=== PATIENT | female | born 2000 | race Hispanic/Latino ===

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

== ENCOUNTER 2019-01-15 09:54 | Emergency (ER) | payer OTHER ==
[~2019-01-15] VITALS: Ht 152.4 cm; Wt 57.3 kg
[2019-01-15 09:54] VITALS: BP 124/56
[~2019-01-15 09:54] MED LIST changes: +FERR325T3 PO
[2019-01-15] MEDS ORDERED: MUCINEX (10:00)
== END 2019-01-15 10:27 | disposition home or self-care (01) ==
LOC: M ED 09:54
DX: J06.9 Acute upper respiratory infection, unspecified (principal); R50.9 Fever, unspecified; R05 Cough

== ENCOUNTER 2019-11-05 06:13 | Emergency (ER) | payer OTHER ==
[~2019-11-05] VITALS: Ht 152.4 cm; Wt 57.7 kg
[~2019-11-05 06:13] MED LIST changes: +MUCINEX; -OMEP40CA2 PO; +OMEP40CA97 PO
[2019-11-05] MEDS ORDERED: NS 1,000 ML IV ONE (06:45)
[2019-11-05 07:08] LABS: BASO # 0.1 10^3/uL (0.0-0.2); BASO % 1.1 % (0.0-1.0); EOS # 0.4 10^3/uL (0.0-0.5); EOS % 5.5 % (0.0-3.0); HEMATOCRIT 39.6 % (36.0-47.0); HEMOGLOBIN 12.6 g/dl (12.0-15.5); LYMPH # 2.2 10^3/uL (1.5-5.0); LYMPH % 33.1 % (24.0-44.0); MEAN CORPUSCULAR HEMOGLOBIN 27.6 pg (27.0-33.0); MEAN CORPUSCULAR HGB CONC 31.8 g/dl (32.0-36.5); MEAN CORPUSCULAR VOLUME 86.8 fl (80.0-96.0); MONO # 0.7 10^3/uL (0.0-0.8); MONO % 10.3 % (0.0-5.0); NEUTROPHILS # 3.3 10^3/uL (1.5-8.5); NEUTROPHILS % 49.7 % (36.0-66.0); PLATELET COUNT, AUTOMATED 182 10^3/uL (150-450); RED BLOOD COUNT 4.56 10^6/uL (4.00-5.40); WHITE BLOOD COUNT 6.6 10^3/uL (4.0-10.0)
[2019-11-05] MEDS ORDERED: KETOROLAC 30 MG/ML 1ML VIAL IV ONE (07:15)
[2019-11-05 07:33] LABS: ALBUMIN 3.9 GM/DL (3.2-5.2); ALT/SGPT 21 U/L (12-78); BILIRUBIN,DIRECT 0.2 MG/DL (0.0-0.2); BILIRUBIN,TOTAL 0.6 MG/DL (0.2-1.0); BLOOD UREA NITROGEN 13 MG/DL (7-18); CALCIUM LEVEL 9.3 MG/DL (8.5-10.1); CARBON DIOXIDE LEVEL 28 MEQ/L (21-32); CHLORIDE LEVEL 108 MEQ/L (98-107); CK-MB VALUE MASS 1.1 NG/ML (<3.6); CPK CREATINE PHOSPHOKINASE 227 U/L (26-192); CREATININE FOR GFR 0.98 MG/DL (0.55-1.30); GLUCOSE, FASTING 93 MG/DL (70-100); LIPASE 98 U/L (73-393); MB/CK RELATIVE INDEX 0.48 (< OR =4); POTASSIUM SERUM 4.2 MEQ/L (3.5-5.1); SODIUM LEVEL 141 MEQ/L (136-145); TROPONIN I < 0.02 NG/ML (< 0.10)
--- NOTE | 2019-11-05 07:57 | REPVR ---
PROCEDURE INFORMATION: Exam: US Abdomen, Limited; Right Upper Quadrant Exam date and time: 11/05/2019 7:36 AM Age: 19 years old Clinical indication: Abdominal pain; Patient HX: Ruq/epigastric pain; Additional info: Ruq/epigastric pain rad to back, R/O gallstone vs cholecysti TECHNIQUE: Imaging protocol: US abdomen. Real time ultrasound with image documentation. Limited exam focused on the right upper quadrant. COMPARISON: CT ABD PELVIS WITH CONTRAST 09/22/2018 12:26 PM FINDINGS: Liver: The liver is homogeneous in echotexture. No demonstrated mass or intrahepatic biliary ductal dilatation. Gallbladder: The gallbladder is without demonstrated stones, sludge or wall thickening, and there is no pericholecystic fluid. Sonographic Ferrari sign was not reported as positive. Common bile duct: The common bile duct is normal in size for a patient of this age at 3.8 mm. Pancreas: Visualized portions of the pancreas, not fully including the tail, are without demonstrated abnormality. Right kidney: The right kidney measures 10.1 x 4.3 x 4.8 cm. Normal appearing echotexture. There is no hydronephrosis or demonstrated renal stone, cyst or mass. Inferior vena cava: The IVC is present. IMPRESSION: No cholelithiasis or sonographic evidence of cholecystitis. Electronically signed by: Guevara Tipton On 11/05/2019 07:57:12 AM
--- NOTE | 2019-11-05 08:08 | ECGEPIP ---
[facility] - ED Test Date: 2019-11-05 Pat Name: AUGUSTO GIRON Department: Room: - Gender: Female Dog Trainer: NANCY : 2000 Requested By: APRIL Portillo PA-C Order Number: [id number] Reading MD: Roxane Reddy Measurements Intervals [place] Rate: 53 P: -14 LA: 141 QRS: 61 QRSD: 87 T: 39 QT: 418 QTc: 394 Interpretive Statements SINUS BRADYCARDIA PROBABLE EARLY REPOLARIZATION No prior Electronically Signed on 11-05-2019 8:07:54 EDT by Roxane Reddy
--- NOTE | 2019-11-05 08:28 | REP ---
Clinical: Lower chest and abdominal pain. Technique: PA and lateral. Findings: Mediastinum and cardiac silhouette normal. Lung torres clear. No focal consolidation, effusion, or pneumothorax. Skeletal structures intact. Limited upper abdomen appears unremarkable. Impression: Normal chest x-ray. Electronically Signed by Mihai Aranda MD 11/05/2019 08:19 A
[2019-11-05] MEDS ORDERED: ISOVUE-370 76% 100ML VIAL As Ordered ONE (08:44)
[2019-11-05] MEDS ORDERED: PANTOPRAZOLE 40MG VIAL (C9113 PER 1) IV ONE (08:45)
[2019-11-05] MEDS ORDERED: GI COCKTAIL 50ML BTL(HYOSCYAMINE/MAALOX/LIDOCAINE VISCOUS)(1:3:1) PO ONE (08:45)
--- NOTE | 2019-11-05 09:12 | REP ---
Clinical: Right upper quadrant/epigastric pain. Technique: Axial contrast enhanced images from the lung bases to the pubic symphysis using 100 ml Isovue 370 intravenous contrast material with coronal and sagittal re-formations. Comparison: 09/22/2018. Findings: Lung bases are clear. Visualized heart and pericardium normal. Liver, spleen, pancreas, gallbladder, bilateral adrenal glands and kidneys are normal. The enteric system is without obstruction or acute inflammatory process although fecal stasis and constipation cannot be excluded. Pelvis demonstrates normal bladder and age-appropriate uterus/adnexa. No ascites. No free air. No adenopathy. Abdominal aorta and vasculature normal. Musculoskeletal structures are intact. Impression: Normal contrast enhanced CT of the abdomen and pelvis. No acute abdominopelvic pathology appreciated. Electronically Signed by Mihai Aranda MD 11/05/2019 09:04 A
[2019-11-05] MEDS ORDERED: PROT1TAB2 PO (10:05)
[2019-11-05 10:48] VITALS: BP 108/55
[2019-11-05 10:58] LABS: CK-MB VALUE MASS 1.1 NG/ML (<3.6); CPK CREATINE PHOSPHOKINASE 176 U/L (26-192); MB/CK RELATIVE INDEX 0.62 (< OR =4); TROPONIN I < 0.02 NG/ML (< 0.10)
== END 2019-11-05 11:07 | disposition home or self-care (01) ==
LOC: M ED 06:13
DX: K29.70 Gastritis, unspecified, without bleeding (principal); R00.1 Bradycardia, unspecified; Z87.42 Personal history of other diseases of the female genital tract; F17.200 Nicotine dependence, unspecified, uncomplicated
CPT/HCPCS: 71046; 74177; 76705; 80047; 80048; 80076; 81001; 82550; 82553; 83690; 84484; 84702; 85025; 93005; 96374; 96375; 99284; C9113; J1885; Q9967

== ENCOUNTER 2020-02-15 11:26 | Emergency (ER) | payer OTHER ==
[~2020-02-15] VITALS: Ht 152.4 cm; Wt 67.2 kg
[~2020-02-15 11:26] MED LIST changes: +PROT1TAB2 PO
[2020-02-15] MEDS ORDERED: META28.32 PO (11:32)
[2020-02-15] MEDS ORDERED: NS 1,000 ML IV ONE (12:00)
[2020-02-15] MEDS ORDERED: KETOROLAC 30 MG/ML 1ML VIAL IV ONE (12:00)
[2020-02-15 12:28] LABS: BASO % 0.6 % (0.0-1.0); EOS # 0.1 10^3/uL (0.0-0.5); HEMATOCRIT 37.5 % (36.0-47.0); HEMOGLOBIN 11.6 g/dl (12.0-15.5); LYMPH % 29.2 % (24.0-44.0); MEAN CORPUSCULAR HEMOGLOBIN 26.2 pg (27.0-33.0); MEAN CORPUSCULAR HGB CONC 30.9 g/dl (32.0-36.5); MEAN CORPUSCULAR VOLUME 84.7 fl (80.0-96.0); MONO # 0.4 10^3/uL (0.0-0.8); MONO % 5.9 % (0.0-5.0); NEUTROPHILS # 4.3 10^3/uL (1.5-8.5); PLATELET COUNT, AUTOMATED 206 10^3/uL (150-450); RED BLOOD COUNT 4.43 10^6/uL (4.00-5.40)
[2020-02-15] MEDS ORDERED: ISOVUE-370 76% 100ML VIAL As Ordered ONE (12:32)
[2020-02-15 12:44] LABS: INR 1.07; PROTHROMBIN TIME 14.1 SECONDS (12.5-14.3)
[2020-02-15 12:45] LABS: PARTIAL THROMBOPLASTIN TIME 28.9 SECONDS (24.2-38.5)
[2020-02-15 12:56] LABS: ALBUMIN 4.1 GM/DL (3.2-5.2); BILIRUBIN,DIRECT 0.2 MG/DL (0.0-0.2); BILIRUBIN,TOTAL 0.7 MG/DL (0.2-1.0); TOTAL PROTEIN 7.3 GM/DL (6.4-8.2)
--- NOTE | 2020-02-15 12:57 | REP ---
INDICATION: Periumbilical pain/rectal bleeding COMPARISON: 11/05/2019. TECHNIQUE: CT Scan of the abdomen and pelvis was performed with intravenous administration of 100 cc of Isovue 370, without oral contrast. FINDINGS: Lung bases: Unremarkable. Liver: Normal Gallbladder: Unremarkable. Spleen: Normal. Adrenals: Normal. Pancreas: Normal. Kidneys: Normal. Small and large bowel: Unremarkable. Free fluid: A tiny amount of free fluid in pelvis is likely physiologic in nature. Abdominal aorta: No aneurysm or dissection. Adenopathy: None. Appendix: Not inflamed. Osseous structures: Unremarkable. Pelvis: No mass. IMPRESSION: Negative CT abdomen and pelvis. A tiny amount of free fluid in the pelvis is likely physiologic in nature. <Electronically signed by Sudheer Burris > 02/15/20 [id number]
[2020-02-15 14:03] VITALS: BP 108/53
== END 2020-02-15 14:19 | disposition home or self-care (01) ==
LOC: M ED 11:26
DX: K62.5 Hemorrhage of anus and rectum (principal); R10.33 Periumbilical pain; K58.9 Irritable bowel syndrome, unspecified; K21.9 Gastro-esophageal reflux disease without esophagitis; D64.9 Anemia, unspecified; F17.210 Nicotine dependence, cigarettes, uncomplicated; R63.4 Abnormal weight loss
CPT/HCPCS: 74177; 80047; 80076; 83690; 85025; 85610; 85730; 96361; 96374; 99284; J1885; Q9967

== ENCOUNTER 2020-03-09 06:36 | Day surgery (SDC) | payer OTHER ==
[~2020-03-09] VITALS: Ht 152.4 cm; Wt 62.1 kg
[~2020-03-09 06:36] MED LIST changes: +META28.32 PO
[2020-03-09] MEDS ORDERED: propofoL 500 MG/50 ML VIAL As Ordered ONE (06:58)
[2020-03-09] MEDS ORDERED: fentaNYL 100 MCG/2 ML INJECTION (J3010) As Ordered ONE (06:59)
[2020-03-09] MEDS ORDERED: NS 1,000 ML IV ONE (07:00)
[2020-03-09] MEDS ORDERED: LIDOCAINE 2% 100MG/5ML SDV (FOR ANES.) As Ordered ONE (07:01)
[2020-03-09] MEDS ORDERED: ONDANSETRON 4MG/2ML VIAL As Ordered ONE (07:11)
[2020-03-09] MEDS ORDERED: ePHEDrine SULFATE 25 MG/5 ML(5MG/ML) SYRINGE As Ordered ONE (07:48)
--- NOTE | 2020-03-09 07:48 | ROOR ---
Patient Name: Pietro Alberto Procedure Date: 03/09/2020 7:35 AM Date of : 2000 Age: 19 Room: [facility] Gender: Female Note Status: Finalized Procedure: Upper Endoscopy + Biopsies Indications: Epigastric abdominal pain, Nausea with vomiting Providers: Cain Dawkins MD Referring MD: DOROTA ACOSTA MD Requesting Provider: Medicines: Monitored Anesthesia Care Complications: No immediate complications. Procedure: Pre-Anesthesia Assessment: - The heart rate, respiratory rate, oxygen saturations, blood pressure, adequacy of pulmonary ventilation, and response to care were monitored throughout the procedure. The Endoscope was introduced through the mouth, and advanced to the second part of duodenum. The upper GI endoscopy was accomplished without difficulty. The patient tolerated the procedure well. Findings: The Z-line was regular and was found 35 cm from the incisors. No other significant abnormalities were identified in a careful examination of the stomach. Biopsies were taken with a cold forceps in the gastric antrum for Helicobacter pylori testing. The exam of the duodenum was otherwise normal. Impression: - Z-line regular, 35 cm from the incisors. - Biopsies were taken with a cold forceps for Helicobacter pylori testing. - The examination was otherwise normal. Recommendation: - Patient has a contact number available for emergencies. The signs and symptoms of potential delayed complications were discussed with the patient. Return to normal activities tomorrow. Written discharge instructions were provided to the patient. - High fiber diet. - Discharge patient to home. - Follow an antireflux regimen. - Continue present medications. - Await pathology results. - Telephone GI clinic for pathology results in 1 week. - Return to referring physician. - The findings and recommendations were discussed with the patient. Procedure Code(s): --- Professional --- 77928, Esophagogastroduodenoscopy, flexible, transoral; with biopsy, single or multiple Diagnosis Code(s): --- Professional --- R10.13, Epigastric pain R11.2, Nausea with vomiting, unspecified CPT copyright 2019 [employer]. All rights reserved. The codes documented in this report are preliminary and upon doorperson review may be revised to meet current compliance requirements. Cain Dawkins MD Cain Dawkins MD 03/09/2020 7:48:16 AM Electronically signed by Cain Dawkins MD Number of Addenda: 0 Note Initiated On: 03/09/2020 7:35 AM Estimated Blood Loss: Estimated blood loss: none.
--- NOTE | 2020-03-09 08:00 | ROOR ---
Patient Name: Pietro Alberto Procedure Date: 03/09/2020 7:35 AM Date of : 2000 Age: 19 Room: [facility] Gender: Female Note Status: Finalized Procedure: Total Colonoscopy to Cecum Indications: Lower abdominal pain Providers: Cain Dawkins MD Referring MD: DOROTA ACOSTA MD Requesting Provider: Medicines: Monitored Anesthesia Care Complications: No immediate complications. Procedure: Pre-Anesthesia Assessment: - The heart rate, respiratory rate, oxygen saturations, blood pressure, adequacy of pulmonary ventilation, and response to care were monitored throughout the procedure. The Colonoscope was introduced through the anus and advanced to the cecum, identified by appendiceal orifice and ileocecal valve. The colonoscopy was performed without difficulty. The patient tolerated the procedure well. The quality of the bowel preparation was good. Findings: The perianal and digital rectal examinations were normal. Non-bleeding external hemorrhoids were found during retroflexion. The hemorrhoids were small and Grade I (internal hemorrhoids that do not prolapse). No other significant abnormalities were identified in a careful examination of the remainder of the colon. The exam was otherwise without abnormality on direct and retroflexion views. Impression: - Non-bleeding external hemorrhoids. - The examination was otherwise normal on direct and retroflexion views. - No specimens collected. - The exam was otherwise normal to the cecum. Recommendation: - Patient has a contact number available for emergencies. The signs and symptoms of potential delayed complications were discussed with the patient. Return to normal activities tomorrow. Written discharge instructions were provided to the patient. - High fiber diet. - Discharge patient to home. - Continue present medications. - Repeat colonoscopy at age 49 for screening purposes. - Return to referring physician. - The findings and recommendations were discussed with the patient. Procedure Code(s): --- Professional --- 24563, Colonoscopy, flexible; diagnostic, including collection of specimen(s) by brushing or washing, when performed (separate procedure) Diagnosis Code(s): --- Professional --- K64.0, First degree hemorrhoids K64.4, Residual hemorrhoidal skin tags R10.30, Lower abdominal pain, unspecified CPT copyright 2019 [employer]. All rights reserved. The codes documented in this report are preliminary and upon medical clerk review may be revised to meet current compliance requirements. Cain Dawkins MD Cain Dawkins MD 03/09/2020 8:00:17 AM Electronically signed by Cain Dawkins MD Number of Addenda: 0 Note Initiated On: 03/09/2020 7:35 AM Estimated Blood Loss: Estimated blood loss: none.
[2020-03-09 08:25] VITALS: BP 127/66
== END 2020-03-09 08:31 | disposition home or self-care (01) ==
LOC: M OPP 06:36
PROVIDERS: ATTEND Internal Medicine Gastroenterology
DX: K64.0 First degree hemorrhoids (principal); K64.4 Residual hemorrhoidal skin tags; R10.30 Lower abdominal pain, unspecified; R11.2 Nausea with vomiting, unspecified; R10.13 Epigastric pain; F17.210 Nicotine dependence, cigarettes, uncomplicated; K58.0 Irritable bowel syndrome with diarrhea; Z79.899 Other long term (current) drug therapy; Z91.040 Latex allergy status
CPT/HCPCS: 43239; 45378; 88305; J2405; J3010

== ENCOUNTER 2020-06-09 00:06 | Emergency (ER) | payer OTHER ==
[~2020-06-09] VITALS: Ht 152.4 cm; Wt 66.0 kg
--- OUTSIDE RECORDS SUMMARY | 2020-06-09 00:13 | CCD | Continuity of Care Document ---
Author Author Pietro DAWKINS Organization Unknown Address [address] [place] [address] Phone [phone] Care Team Providers Care Elementary Reading Specialist Name Role Phone Matt Byrd AUTM [phone] Problems Active Problems Provider Date Irritable bowel syndrome Cain Dawkins M.D. Onset: 08/2019 Social History Type Date Description Comments Sex Unknown ETOH Use Denies alcohol use Tobacco Use Start: Unknown Patient is a current smoker, smo kes some days Allergies, Adverse Reactions, Alerts Active Allergies Reaction Severity Comments Date NKDA 09/04/2018 Latex 02/18/2020 Medications Active Medications SIG Qnty Indications Ordering Provide r Date Suprep Bowel Prep Kit 17.5-3.13-1.6GM/177ML Solution use as directed 354ml Cain Dawkins M.D. 02/18/[address]odium 40mg Tablets DR Unknown Psyllium Fiber 0.52gm Capsules Unknown Immunizations Description No Information Available Vital Signs Date Vital Result Comment 02/18/2020 12:04pm Height 60 inches 5'0" Weight 133.00 lb BP Systolic 116 mmHg BP Diastolic 79 mmHg Heart Rate 78 /min BMI (Body Mass Index) 26.0 kg/m2 Weight 60.329 kg Body Temperature 97.7 F 09/04/2018 10:33am Height 60 inches 5'0" Weight 130.00 lb BP Systolic 122 mmHg BP Diastolic 71 mmHg Heart Rate 64 /min BMI (Body Mass Index) 25.4 kg/m2 Weight 58.968 kg Results Test Acquired Date Facility Test Result H/L Range Note Laboratory test finding 03/09/2020 [facility] [address] [place] [address] Pathology Request For Service (SEE NOTE) 1, 2 1 FINAL DIAGNOSIS Stomach, antrum, biopsy: Gastric mucosa without significant pathology. No H.pylori is identified. 03/14/2020 - 1021 CLINICAL DIAGNOSIS Nausea, vomiting, abdominal pain, rectal bleeding 03/09/2020 - 1312 GROSS DIAGNOSIS Received in formalin labeled "biopsy antrum R/O H. pylori" and consists of a fragment of tissue 0.1 x 0.1 x 0.1 cm. All in one. -OA 03/09/2020 - 1312 Signed CHANTAL FLORENTINO MD 03/14/2020 1022 2 03/16/20 (SatMar 16) 07:24 P Calvin DAWKINS Biopsies are negative. Procedures Date Code Description Status 03/09/2020 50928 Colonoscopy Flexible Diagnostic Completed 03/09/2020 66022 Endoscopy Upper GI Biopsy [employer] Description No Information Available Encounters Type Date Location Provider Dx Diagnosis Office Visit 02/18/2020 11:15a Main Office Cain Dawkins M.D. K 58.0 Irritable bowel syndrome with diarrhea Assessments Date Code Description Provider 03/09/2020 R10.30 Lower abdominal pain, unspecifie d Cain Dawkins M.D. 03/09/2020 K64.0 First degree hemorrhoids Cain Dawkins M.D. 03/09/2020 R10.13 Epigastric pain Cain gonzalez M.D. 03/09/2020 K31.89 Other diseases of stomach and du odenum Cain Dawkins M.D. 02/18/2020 K58.0 Irritable bowel syndrome with di arrhea Cain Dawkins M.D. Plan of Treatment 02/18/2020 - Cain Dawkins M.D.* K58.0 Irritable bowel syndrome with diarrhea* Comments:* 19 yo wf who presents for a h/o chronic irregular bowel habits, and lower abdominal pain. No c/o weight loss, or rectal bleeding. No family h/o colon cancer. No h/o chest pain, or sob. Pt has had several attacks of abdominal pain/diarrhea. All scans were negative. Plan:1. Colonoscopy + ileoscopy + biopsies.2. Egd + biopsies.3. Informed consent. Functional Status Description No Information Available Mental Status Description No Information Available Referrals Refer to Reason for Referral Status Appt Date Cain Dawkins M.D. Created [address] [place] [address] [phone]
--- OUTSIDE RECORDS SUMMARY | 2020-06-09 00:13 | CCD | Continuity of Care Document ---
Author Author Pietro DAWKINS Organization Unknown Address [address] [place] [id number] Phone [phone] Care Team Providers Care Equipment Operation Instructor Name Role Phone Matt Byrd AUTM Problems Active Problems Provider Date Irritable bowel [...] H/L Range Note Laboratory test finding 03/09/2020 [facility] [address] [place] [id number] Pathology Request For Service (SEE NOTE) 1 1 FINAL DIAGNOSIS Stomach, antrum, biopsy: Gastric mucosa without significant pathology. No H.pylori is identified. 03/14/2020 - 102 CLINICAL DIAGNOSIS Nausea, vomiting, abdominal pain, rectal bleeding 03/09/2020 - 1313 GROSS DIAGNOSIS Received in formalin labeled "biopsy antrum R/O H. pylori" and consists of a fragment of tissue 0.1 x 0.1 x 0.1 cm. All in one. -OA 03/09/2020 - 3 Signed CHANTAL FLORENTINO MD 03/14/2020 1022 Procedures Date Code Description Status 03/09/2020 35306 Colonoscopy Flexible Diagnostic Completed 03/09/2020 03052 Endoscopy Upper GI Biopsy [employer]ple [employer] Description No Information Available Encounters Type Date [...] Date Cain Dawkins M.D. Created [address] [place] [address] [phone]
--- OUTSIDE RECORDS SUMMARY | 2020-06-09 00:14 | CCD ---
Author Author [facility] Organization [facility] Address Unknown Phone Unavailable Care Team Providers Care Family Practice Md Name Role Phone Kaelyn Dawkins MD Unavailable Unavailable Kaelyn Dawkins MD Unavailable Unavailable Kaelyn Dawkins MD Unavailable Unavailable Kaelyn Dawkins MD Unavailable Unavailable Kaelyn Dawkins MD Unavailable Unavailable Kaelyn Dawkins MD Unavailable Unavailable Kaelyn Dawkins MD Unavailable Unavailable Kaelyn Dawkins MD Unavailable Unavailable Kaelyn Dawkins MD Unavailable Unavailable Kaelyn Dawkins MD Unavailable Unavailable Kaelyn Dawkins MD Unavailable Unavailable Kaelyn Dawkins MD Unavailable Unavailable Kaelyn Dawkins MD Unavailable Unavailable Kaelyn Dawkins MD Unavailable Unavailable Kaelyn Dawkins MD Unavailable Unavailable Kaelyn Dawkins MD Unavailable Unavailable Kaelyn Dawkins MD Unavailable Unavailable Kaelyn Dawkins MD Unavailable Unavailable Kaelyn Dawkins MD Unavailable Unavailable Kaelyn Dawkins MD Unavailable Unavailable Kaelyn Dawkins MD Unavailable Unavailable Kaelyn Dawkins MD Unavailable Unavailable Kaelyn Dawkins MD Unavailable Unavailable Kaelyn Dawkins MD Unavailable Unavailable Kaelyn Dawkins MD Unavailable Unavailable Kaelyn Dawkins MD Unavailable Unavailable Kaelyn Dawkins MD Unavailable Unavailable Kaelyn Dawkins MD Unavailable Unavailable Kaelyn Dawkins MD Unavailable Unavailable Kaelyn Dawkins MD Unavailable Unavailable Kaelyn Dawkins MD Unavailable Unavailable Kaelyn Dawkins MD Unavailable Unavailable Kaelyn Dawkins MD Unavailable Unavailable Kaelyn Dawkins MD Unavailable Unavailable Kaelyn Dawkins MD Unavailable Unavailable Kaelyn Dawkins MD Unavailable Unavailable Kaelyn Dawkins MD Unavailable Unavailable Kaelyn Dawkins MD Unavailable Unavailable Kaelyn Dawkins MD Unavailable Unavailable Kaelyn Dawkins MD Unavailable Unavailable Kaelyn Dawkins MD Unavailable Unavailable Kaelyn Dawkins MD Unavailable Unavailable Kaelyn Dawkins MD Unavailable Unavailable Kaelyn Dawkins MD Unavailable Unavailable Kaelyn Dawkins MD Unavailable Unavailable Kaelyn Dawkins MD Unavailable Unavailable Kaelyn Dawkins MD Unavailable Unavailable Kaelyn Dawkins MD Unavailable Unavailable Kaelyn Dawkins MD Unavailable Unavailable Kaelyn Dawkins MD Unavailable Unavailable Dileep Kaur MD Unavailable Unavailable Dileep Kaur MD Unavailable Unavailable Dileep Kaur MD Unavailable Unavailable Dileep Kaur MD Unavailable Unavailable Dileep Kaur MD Unavailable Unavailable Dileep Kaur MD Unavailable Unavailable Dileep Kaur MD Unavailable Unavailable Dileep Kaur MD Unavailable Unavailable Dileep Kaur MD Unavailable Unavailable Dileep Kaur MD Unavailable Unavailable Dileep Kaur MD Unavailable Unavailable Dileep Kaur MD Unavailable Unavailable Dileep Kaur MD Unavailable Unavailable Dileep Kaur MD Unavailable Unavailable Dileep Kaur MD Unavailable Unavailable Dileep Kaur MD Unavailable Unavailable Dileep Kaur MD Unavailable Unavailable Dileep Kaur MD Unavailable Unavailable Dileep Kaur MD Unavailable Unavailable Dileep Kaur MD Unavailable Unavailable Dileep Kaur MD Unavailable Unavailable Dileep Kaur MD Unavailable Unavailable Dileep Kaur MD Unavailable Unavailable Dileep Kaur MD Unavailable Unavailable Dileep Kaur MD Unavailable Unavailable Dileep Kaur MD Unavailable Unavailable Dileep Kaur MD Unavailable Unavailable Dileep Kaur MD Unavailable Unavailable Dileep Kaur MD Unavailable Unavailable Dileep Kaur MD Unavailable Unavailable Dileep Kaur MD Unavailable Unavailable Dileep Kaur MD Unavailable Unavailable Dileep Kaur MD Unavailable Unavailable Dileep Kaur MD Unavailable Unavailable Dileep Kaur MD Unavailable Unavailable Dileep Kaur MD Unavailable Unavailable Dileep Kaur MD Unavailable Unavailable Dileep Kaur MD Unavailable Unavailable Dileep Kaur MD Unavailable Unavailable Dileep Kaur MD Unavailable Unavailable Dileep Kaur MD Unavailable Unavailable Dileep Kaur MD Unavailable Unavailable Dileep Kaur MD Unavailable Unavailable Dileep Kaur MD Unavailable Unavailable Dileep Kaur MD Unavailable Unavailable Dileep Kaur MD Unavailable Unavailable Dileep Kaur MD Unavailable Unavailable Kaur, Dileep Olson MD Unavailable Unavailable Kaur, D Wesley MD Unavailable Unavailable Kaur, D Wesley MD Unavailable Unavailable Kaur, D Wesley MD Unavailable Unavailable Kaur, D Wesley MD Unavailable Unavailable Kaur, D Wesley MD Unavailable Unavailable Kaur, D Wesley MD Unavailable Unavailable Kaur, D Wesley MD Unavailable Unavailable Kaur, D Wesley MD Unavailable Unavailable Kaur, D Wesley MD Unavailable Unavailable Kaur, D Wesley MD Unavailable Unavailable Kaur, D Wesley MD Unavailable Unavailable Kaur, D Wesley MD Unavailable Unavailable Kaur, D Wesley MD Unavailable Unavailable Kaur, D Wesley MD Unavailable Unavailable Kaur, D Wesley MD Unavailable Unavailable Kaur, D Wesley MD Unavailable Unavailable Kaur, D Wesley MD Unavailable Unavailable Kaur, D Wesley MD Unavailable Unavailable Kaur, D Wesley MD Unavailable Unavailable Kaur, D Wesley MD Unavailable Unavailable Kaur, D Wesley MD Unavailable Unavailable Kaur, D Wesley MD Unavailable Unavailable Kaur, D Wesley MD Unavailable Unavailable Kaur, D Wesley MD Unavailable Unavailable Kaur, D Wesley MD Unavailable Unavailable Kaur, D Wesley MD Unavailable Unavailable Kaur, D Wesley MD Unavailable Unavailable Kaur, D Wesley MD Unavailable Unavailable Kaur, D Wesley MD Unavailable Unavailable Kaur, D Wesley MD Unavailable Unavailable Kaur, D Wesley MD Unavailable Unavailable Kaur, D Wesley MD Unavailable Unavailable Kaur, D Wesley MD Unavailable Unavailable Kaur, D Wesley MD Unavailable Unavailable Kaur, D Wesley MD Unavailable Unavailable Kaur, D Wesley MD Unavailable Unavailable Kaur, D Wesley MD Unavailable Unavailable Kaur, D Wesley MD Unavailable Unavailable Kaur, D Wesley MD Unavailable Unavailable Kaur, D Wesley MD Unavailable Unavailable Kaur, D Wesley MD Unavailable Unavailable Re-disclosure Warning The records that you are about to access may contain information from federally-assisted alcohol or drug abuse programs. If such information is present, then the following federally mandated warning applies: This information has been disclosed to you from records protected by federal confidentiality rules (42 CFR part 2). The federal rules prohibit you from making any further disclosure of this information unless further disclosure is expressly permitted by the written consent of the person to whom it pertains or as otherwise permitted by 42 CFR part 2. A general authorization for the release of medical or other information is NOT sufficient for this purpose. The Federal rules restrict any use of the information to criminally investigate or prosecute any alcohol or drug abuse patient.The records that you are about to access may contain highly sensitive health information, the redisclosure of which is protected by Article 27-F of the [facility] Public Health law. If you continue you may have access to information: Regarding HIV / AIDS; Provided by facilities licensed or operated by the [facility] Office of Mental Health; or Provided by the [facility] Office for People With Developmental Disabilities. If such information is present, then the following [facility] mandated warning applies: This information has been disclosed to you from confidential records which are protected by state law. State law prohibits you from making any further disclosure of this information without the specific written consent of the person to whom it pertains, or as otherwise permitted by law. Any unauthorized further disclosure in violation of state law may result in a fine or alf sentence or both. A general authorization for the release of medical or other information is NOT sufficient authorization for further disc losure. Allergies and Adverse Reactions Type Description Substance Reaction Status Data Source(s ) Allergy to substance Allergy to substance Allergy to substance [facility] ([facility]) Family History Family Member Name Family Member Gender Family Member Status Date o f Status Description Data Source(s) Unknown Male Problem [facility] ([facility]) Encounters Encounter Providers Location Date Indications Data Source(s ) Wesley Kaur MD: [address] [place] [id number], Ph. Attender: Wesley Kaur MD [facility] 05/17/2020 12:00:00 AM EST [facility] ([facility]) Outpatient Attender: Cain Dawkins MD Main Office 02/18/2020 10:15:00 AM EST [facility] ([facility]) Medications Medication Brand Name Start Date Product Form Dose Route Admi nistrative Instructions Pharmacy Instructions Status Indications Reaction Description Data Source(s) Suprep Bowel Prep Kit Suprep Bowel Prep Kit 02/18/2020 12:00:00 AM EST active [facility] ([facility]) Insurance Providers Payer name Policy type / Coverage type Policy ID Covered constitution party ID Covered constitution party's relationship to arevalo Policy Arevalo Plan Information [facility] ACTIVE DUTY [id number] SP [id number] [employer] [facility] O [id number] S [id number] [facility] 2018 Commercial [id number] Self [id number] [facility] 2018 Commercial [id number] Self [id number] [facility] ACTIVE DUTY [id number] SP [id number] Problems, Conditions, and Diagnoses Code Display Name Description Problem Type Effective Dates Data Source(s) 86804138 Irritable bowel syndrome Irritable bowel syndrome Prob abimael 02/18/2020 12:00:00 AM EST [facility] ([facility]) Surgeries/Procedures Procedure Description Date Indications Data Source(s) UPPER NDSC BIOPSY SINGLE/MULTIPLE 03/09/2020 12:00:00 AM EST [facility] ([facility]) COLONOSCOPY FLX DX W/WO COLLJ SPECIMENS 03/09/2020 12: 00:00 AM EST [facility] ([facility]) Results ID Date Data Source [id number] 05/23/2020 10:22:00 AM EST [place] Name Value Range Interpretation Code Description Data Kim rce(s) Supporting Document(s) SARS coronavirus 2 RNA Not Detected [facility] [place] This lab was ordered by [facility] Laboratory and reported by [facility]. ID Date Data Source [id number] 05/19/2020 08:39:00 AM EST [facility] Name Value Range Interpretation Code Description Data Kim rce(s) Supporting Document(s) SARS coronavirus 2 RNA Not Detected [facility] [place] This lab was ordered by [facility] Laboratory and reported by [facility]. ID Date Data Source [id number] 05/17/2020 11:08:00 AM EST [facility] ([facility]) Name Value Range Interpretation Code Description Data Kim rce(s) Supporting Document(s) sars-cov-2 negative negative normal Sars-cov-2 [facility]) ID Date Data Source [id number] 03/09/2020 07:56:00 AM EST [facility] ([facility]) Name Value Range Interpretation Code Description Data Kim rce(s) Supporting Document(s) Surgical pathology study Laboratory test result [facility] ([facility]) FINAL DIAGNOSIS Stomach, antrum, biopsy: Gastric mucosa [...] 1312 Signed CHANTAL FLORENTINO MD 03/14/2020 1022 Procedure Vital Signs ID Date Data Source UNK Name Value Range Interpretation Code Description Data Source(s) Body temperature 97.7 [degF] 97.7 [degF] [facility] ([facility]) Body weight 60.329 kg 60.329 kg [facility] ([facility]) Body mass index (BMI) [Ratio] 26.0 kg/m2 26.0 k g/m2 [facility] ([facility]) Heart rate 78 /min 78 /min [facility] ([facility]) Diastolic blood pressure 79 mm[Hg] 79 mm[Hg] [facility] ([facility]) Systolic blood pressure 116 mm[Hg] 116 mm[Hg] M EDENT ([facility]) Body weight 133.00 [lb_av] 133.00 [lb_av] MEDEN T ([facility]) Body height 60 [in_i] 60 [in_i] [facility] ([facility]) 5'0"
[2020-06-09] MEDS ORDERED: NS 1,000 ML IV ONE (01:00)
[2020-06-09] MEDS ORDERED: ACETAMINOPHEN 500 MG TAB PO ONE (01:00)
[2020-06-09 01:41] LABS: BASO % 0.6 % (0.0-1.0); EOS # 0.3 10^3/uL (0.0-0.5); HEMATOCRIT 40.5 % (36.0-47.0); HEMOGLOBIN 12.4 g/dl (12.0-15.5); LYMPH # 2.1 10^3/uL (1.5-5.0); LYMPH % 32.7 % (24.0-44.0); MEAN CORPUSCULAR HEMOGLOBIN 25.6 pg (27.0-33.0); MEAN CORPUSCULAR HGB CONC 30.6 g/dl (32.0-36.5); MEAN CORPUSCULAR VOLUME 83.5 fl (80.0-96.0); MONO # 0.5 10^3/uL (0.0-0.8); MONO % 8.3 % (2.0-8.0); NEUTROPHILS # 3.4 10^3/uL (1.5-8.5); NEUTROPHILS % 53.2 % (36.0-66.0); PLATELET COUNT, AUTOMATED 209 10^3/uL (150-450); RED BLOOD COUNT 4.85 10^6/uL (4.00-5.40); WHITE BLOOD COUNT 6.4 10^3/uL (4.0-10.0)
[2020-06-09 01:52] LABS: INR 0.98; PROTHROMBIN TIME 13.2 SECONDS (12.5-14.3)
[2020-06-09 01:53] LABS: PARTIAL THROMBOPLASTIN TIME 29.5 SECONDS (24.2-38.5)
[2020-06-09 02:15] LABS: CK-MB VALUE MASS < 1.0 NG/ML (<3.6); CPK CREATINE PHOSPHOKINASE 119 U/L (26-192); FREE T4 1.04 NG/DL (0.78-1.33); MB/CK RELATIVE INDEX 0.84 (< OR =4); THYROID STIMULATING HORMONE 0.993 uIU/ML (0.463-3.98); TROPONIN I < 0.02 NG/ML (< 0.10)
--- OUTSIDE RECORDS SUMMARY | 2020-06-09 02:20 | CCD ---
Author Author [facility] Organization [facility] Address Unknown Phone Unavailable Care Team Providers Care Off Premise Service Representative Name Role Phone Kaelyn Dawkins MD Unavailable [...] is protected by Article 27-F of the [facility] Public Health law. If you continue you may have access to information: Regarding HIV / AIDS; Provided by facilities licensed or operated by the [facility] Office of Mental Health; or Provided by the [facility] Office for People With Developmental Disabilities. If such information is present, then the following [facility] mandated warning applies: This information has been [...] law may result in a fine or half-way sentence or both. A general authorization for the release of medical or other information is NOT sufficient authorization for further disc losure. Allergies and Adverse Reactions Type Description Substance Reaction Status Data Source(s ) Allergy to substance Allergy to substance Allergy to substance [facility] ([facility]) Family History Family Member Name Family Member Gender Family Member Status Date o f Status Description Data Source(s) Unknown Male Problem [facility] ([facility]) Encounters Encounter Providers Location Date Indications Data Source(s ) Wesley Kaur MD: [address] [place] [phone], Ph. Attender: Wesley Kaur MD [facility] Medical 05/17/2020 12:00:00 AM EST [facility] ([facility]) Outpatient Attender: Cain Dawkins MD [...] type / Coverage type Policy ID Covered green party ID Covered green party's relationship to arevalo Policy Arevalo Plan Information [facility] ACTIVE DUTY [id number] SP [id number] [employer] [facility] REG O [id number] S [id number] [facility] 2018 Commercial [id number] Self [id number] [facility] 2018 Commercial [id number] Self [id number] [facility] ACTIVE DUTY [id number] SP [id number] Problems, Conditions, and Diagnoses Code Display Name Description Problem Type Effective Dates Data Source(s) [id number] Irritable bowel syndrome Irritable bowel syndrome Prob abimael 02/18/2020 12:00:00 AM EST [facility] ([facility]) Surgeries/Procedures Procedure Description Date Indications Data Source(s) UPPER NDSC BIOPSY SINGLE/MULTIPLE 03/09/2020 12:00:00 AM EST [facility] ([facility]) COLONOSCOPY FLX DX W/WO COLLJ SPECIMENS 03/09/2020 12: 00:00 AM EST [facility] ([facility]) Results ID Date Data Source [id number] 05/23/2020 10:22:00 AM EST [facility] Name Value Range Interpretation Code Description Data Kim rce(s) Supporting Document(s) SARS coronavirus 2 RNA Not Detected [facility] [place] This lab was ordered by [facility] Laboratory and reported by [facility]. ID Date Data Source [id number] 05/19/2020 08:39:00 AM EST [facility] Name Value Range Interpretation Code Description Data Kim rce(s) Supporting Document(s) SARS coronavirus 2 RNA Not Detected [facility] [place] This lab was ordered by [facility] Laboratory and reported by [facility]. ID Date Data Source [id number] 05/17/2020 11:08:00 AM EST [facility] ([facility]) Name Value Range Interpretation Code Description Data Kim rce(s) Supporting Document(s) sars-cov-2 negative negative normal Sars-cov-2 [facility]) ID Date Data Source [id number] 03/09/2020 07:56:00 AM EST [facility] ([facility]) Name Value Range Interpretation Code Description Data Kim rce(s) Supporting Document(s) Surgical pathology study Laboratory [facility] FINAL DIAGNOSIS Stomach, antrum, biopsy: Gastric [...]
[2020-06-09 02:35] VITALS: BP 95/52
--- NOTE | 2020-06-09 02:39 | REPVR ---
PROCEDURE INFORMATION: Exam: CT Head Without Contrast Exam date and time: 06/09/2020 12:57 AM Age: 19 years old Clinical indication: Injury or trauma; Fall; Concussion/head injury; Consciousness not specified; Additional info: Syncope TECHNIQUE: Imaging protocol: Computed tomography of the head without contrast. Radiation optimization: All CT scans at this facility use at least one of these dose optimization techniques: automated exposure control; mA and/or kV adjustment per patient size (includes targeted exams where dose is matched to clinical indication); or iterative reconstruction. COMPARISON: No relevant prior studies available. FINDINGS: Brain: Normal. No hemorrhage. Unremarkable white matter. No mass effect. Cerebral ventricles: No ventriculomegaly. Bones/joints: Unremarkable. No acute fracture. Paranasal sinuses: Visualized sinuses are unremarkable. No fluid levels. Mastoid air cells: Visualized mastoid air cells are well aerated. Soft tissues: Unremarkable. IMPRESSION: No acute intracranial abnormality. Electronically signed by: Bob Rueda On 06/09/2020 02:39:08 AM
--- NOTE | 2020-06-09 19:40 | ECGEPIP ---
[facility] - ED Test Date: 2020-06-09 Pat Name: AUGUSTO GIRON Department: Room: - Gender: Female Associate Pathologist: ED : 2000 Requested By: ADELAIDA Love PA-C Order Number: [id number] Reading MD: Roxane Reddy Measurements Intervals [place] Rate: 67 P: 13 NV: 148 QRS: 52 QRSD: 88 T: 27 QT: 370 QTc: 390 Interpretive Statements Normal sinus rhythm with sinus arrhythmia increased rate 11/05/19 Electronically Signed on 06-09-2020 19:40:22 EST by Roxane Reddy
== END 2020-06-09 02:51 | disposition home or self-care (01) ==
LOC: M ED 00:06
DX: S09.90XA Unspecified injury of head, initial encounter (principal); W22.8XXA Striking against or struck by other objects, initial encounter; Y92.013 Bedroom of single-family (private) house as the place of occurrence of the external cause; G44.209 Tension-type headache, unspecified, not intractable; D64.9 Anemia, unspecified; F17.210 Nicotine dependence, cigarettes, uncomplicated

== ENCOUNTER 2020-11-01 09:06 | Emergency (ER) | payer OTHER ==
[~2020-11-01] VITALS: Ht 152.4 cm; Wt 67.3 kg
[~2020-11-01 09:06] MED LIST changes: -ACET-908 PO; +ACET-910 PO; +OMEP40CA4 PO; -OMEP40CA97 PO
[2020-11-01] MEDS ORDERED: OMEP-221 PO (09:28)
[2020-11-01 12:37] LABS: BASO # 0.1 10^3/uL (0.0-0.2); BASO % 0.8 % (0.0-1.0); EOS # 0.2 10^3/uL (0.0-0.5); EOS % 2.8 % (0.0-3.0); HEMATOCRIT 39.2 % (36.0-47.0); HEMOGLOBIN 12.3 g/dl (12.0-15.5); LYMPH # 1.8 10^3/uL (1.5-5.0); LYMPH % 26.8 % (24.0-44.0); MEAN CORPUSCULAR HEMOGLOBIN 26.2 pg (27.0-33.0); MEAN CORPUSCULAR HGB CONC 31.4 g/dl (32.0-36.5); MEAN CORPUSCULAR VOLUME 83.6 fl (80.0-96.0); MONO # 0.5 10^3/uL (0.0-0.8); MONO % 7.1 % (2.0-8.0); NEUTROPHILS # 4.1 10^3/uL (1.5-8.5); NEUTROPHILS % 62.2 % (36.0-66.0); PLATELET COUNT, AUTOMATED 221 10^3/uL (150-450); RED BLOOD COUNT 4.69 10^6/uL (4.00-5.40); WHITE BLOOD COUNT 6.5 10^3/uL (4.0-10.0)
[2020-11-01 13:03] LABS: HCG, SERUM QUALITATIVE NEGATIVE (NEGATIVE)
[2020-11-01 13:05] LABS: ALBUMIN 3.9 GM/DL (3.2-5.2); ALT/SGPT 26 U/L (12-78); BILIRUBIN,DIRECT 0.1 MG/DL (0.0-0.2); BILIRUBIN,TOTAL 0.4 MG/DL (0.2-1.0); BLOOD UREA NITROGEN 8 MG/DL (7-18); CALCIUM LEVEL 9.5 MG/DL (8.5-10.1); CARBON DIOXIDE LEVEL 31 MEQ/L (21-32); CHLORIDE LEVEL 108 MEQ/L (98-107); CREATININE FOR GFR 0.98 MG/DL (0.55-1.30); GLOMERULAR FILTRATION RATE > 60.0 (>60); GLUCOSE, FASTING 85 MG/DL (70-100); LIPASE 65 U/L (73-393); POTASSIUM SERUM 4.2 MEQ/L (3.5-5.1); SODIUM LEVEL 142 MEQ/L (136-145); TOTAL PROTEIN 7.3 GM/DL (6.4-8.2)
[2020-11-01] MEDS ORDERED: NS 1,000 ML IV ONE (13:05)
[2020-11-01] MEDS ORDERED: ONDANSETRON 4MG/2ML VIAL IV ONE (13:05)
[2020-11-01] MEDS ORDERED: KETOROLAC 30 MG/ML 1ML VIAL IV ONE (13:05)
--- NOTE | 2020-11-01 13:43 | REP ---
INDICATION: RUQ pain, n/v after eating. COMPARISON: None. TECHNIQUE: Right upper quadrant abdominal sonography. FINDINGS: Scanning through the right upper quadrant of the abdomen demonstrates a normal sized, thin-walled gallbladder without evidence of stone or polyp. Common bile duct is normal measuring 0.4 cm in greatest diameter. No focal liver lesion is seen. Liver size is normal. The pancreas is partially obscured by bowel gas. No pancreatic abnormality is observed. No right renal abnormality is seen. There is no evidence of ascites. The right kidney measures 10.1 x 5.0 x 4.1 cm. IMPRESSION: Negative right upper quadrant sonography. <Electronically signed by German Gomez > 11/01/20 2046
[2020-11-01] MEDS ORDERED: ISOVUE-370 76% 100ML VIAL As Ordered ONE (13:49)
--- NOTE | 2020-11-01 15:06 | REP ---
INDICATION: RUQ pain, neg US COMPARISON: CT 02/15/2020, ultrasound 11/01/2020. TECHNIQUE: CT Scan of the abdomen and pelvis was performed with intravenous administration of 100 cc of Isovue 370, without oral contrast. Sagittal and coronal reconstruction images are performed. FINDINGS: Lung bases: Unremarkable. Liver: Normal Gallbladder: Unremarkable. Spleen: Normal. Adrenals: Normal. Pancreas: Normal. Kidneys: Normal. Small and large bowel: Unremarkable. There is no free air or obstruction. Free fluid: Trace free fluid in the pelvis is likely physiologic. Abdominal aorta: No aneurysm or dissection. Adenopathy: None. Appendix: Not inflamed. Osseous structures: Unremarkable. Pelvis: No mass. IMPRESSION: Negative CT abdomen and pelvis. <Electronically signed by Sudheer Burris > 11/01/20 [id number]
[2020-11-01] MEDS ORDERED: ZOFR4TAB16 PO (15:26)
[2020-11-01] MEDS ORDERED: PROT1TAB2 PO (15:26)
[2020-11-01] MEDS ORDERED: CARA1TAB6 PO (15:26)
[2020-11-01 15:37] VITALS: BP 110/66
== END 2020-11-01 15:39 | disposition home or self-care (01) ==
LOC: M ED 09:06
DX: K80.50 Calculus of bile duct without cholangitis or cholecystitis without obstruction (principal); K58.9 Irritable bowel syndrome, unspecified; K21.9 Gastro-esophageal reflux disease without esophagitis
CPT/HCPCS: 74177; 76705; 80048; 80076; 81001; 82977; 83690; 84703; 85025; 96361; 96374; 99284; J1885; J2405; Q9967

== ENCOUNTER 2020-11-21 18:32 | Emergency (ER) | payer OTHER ==
[~2020-11-21] VITALS: Ht 152.4 cm; Wt 67.8 kg
[~2020-11-21 18:32] MED LIST changes: +IBUP200C25 PO; +OMEP-221 PO; +ZOFR4TAB16 PO
[2020-11-21 18:33] VITALS: BP 138/82
[2020-11-21] MEDS ORDERED: LEXA1TAB (18:54)
[2020-11-21] MEDS ORDERED: HYDR1CAP25 (18:54)
[2020-11-21] MEDS ORDERED: B-122500 PO (20:03)
[2020-11-21] MEDS ORDERED: VITA100062 PO (20:03)
[2020-11-21] MEDS ORDERED: BACITAB PO (20:03)
[2020-11-21] MEDS ORDERED: FISH1000 PO (20:03)
[2020-11-21] MEDS ORDERED: HOME MED LIST COMPLETE! XX SCH (20:05)
[2020-11-21 21:24] LABS: HEMATOCRIT 40.6 % (36.0-47.0); MEAN CORPUSCULAR HEMOGLOBIN 26.4 pg (27.0-33.0); MEAN CORPUSCULAR VOLUME 82.5 fl (80.0-96.0); PLATELET COUNT, AUTOMATED 264 10^3/uL (150-450); RED BLOOD COUNT 4.92 10^6/uL (4.00-5.40); WHITE BLOOD COUNT 8.6 10^3/uL (4.0-10.0)
[2020-11-21 21:39] LABS: AMPHETAMINES LEVEL URINE NEGATIVE (NEGATIVE); BARBITURATES URINE NEGATIVE (NEGATIVE); BENZODIAZEPINES URINE NEGATIVE (NEGATIVE); CANNABINOIDS URINE NEGATIVE (NEGATIVE); COCAINE METABOLITE URINE NEGATIVE (NEGATIVE); METHADONE URINE NEGATIVE (NEGATIVE); OPIATES URINE NEGATIVE (NEGATIVE); PHENCYCLIDINE URINE NEGATIVE (NEGATIVE)
[2020-11-21 21:58] LABS: ACETAMINOPHEN LEVEL < 2.0 UG/ML (10.0-30.0); ALT/SGPT 28 U/L (12-78); BILIRUBIN,DIRECT < 0.1 MG/DL (0.0-0.2); BILIRUBIN,TOTAL 0.2 MG/DL (0.2-1.0); BLOOD UREA NITROGEN 11 MG/DL (7-18); CALCIUM LEVEL 8.9 MG/DL (8.5-10.1); CARBON DIOXIDE LEVEL 27 MEQ/L (21-32); CHLORIDE LEVEL 110 MEQ/L (98-107); CREATININE FOR GFR 1.04 MG/DL (0.55-1.30); ETHYL ALCOHOL (ETHANOL) < 0.003 % (0.000-0.010); GLOMERULAR FILTRATION RATE > 60.0 (>60); GLUCOSE, FASTING 86 MG/DL (70-100); SALICYLATE LEVEL < 1.7 MG/DL (5.0-30.0); SODIUM LEVEL 141 MEQ/L (136-145); TOTAL PROTEIN 7.5 GM/DL (6.4-8.2)
== END 2020-11-22 00:41 | disposition home or self-care (01) ==
LOC: M ED 18:32
DX: F32.9 Major depressive disorder, single episode, unspecified (principal); F17.200 Nicotine dependence, unspecified, uncomplicated

== ENCOUNTER 2021-01-07 02:56 | Emergency (ER) | payer OTHER ==
[~2021-01-07] VITALS: Ht 152.4 cm; Wt 71.1 kg
[~2021-01-07 02:56] MED LIST changes: +B-122500 PO; +BACITAB PO; +FISH1000 PO; +HYDR1CAP25; +LEXA1TAB; +VITA100062 PO
[2021-01-07] MEDS ORDERED: SERT-141 PO (03:20)
[2021-01-07] MEDS ORDERED: TRAZ-252 PO (03:20)
[2021-01-07 04:07] LABS: ACETAMINOPHEN LEVEL < 2.0 UG/ML (10.0-30.0); ETHYL ALCOHOL (ETHANOL) 0.178 % (0.000-0.010); SALICYLATE LEVEL < 1.7 MG/DL (5.0-30.0)
[2021-01-07] MEDS ORDERED: LIDOCAINE 1% MDV 20ML VIAL SC ONE (04:40)
[2021-01-07 05:25] VITALS: BP 110/63
[2021-01-07 05:58] LABS: AMPHETAMINES LEVEL URINE NEGATIVE (NEGATIVE); BARBITURATES URINE NEGATIVE (NEGATIVE); BENZODIAZEPINES URINE NEGATIVE (NEGATIVE); CANNABINOIDS URINE NEGATIVE (NEGATIVE); COCAINE METABOLITE URINE NEGATIVE (NEGATIVE); METHADONE URINE NEGATIVE (NEGATIVE); OPIATES URINE NEGATIVE (NEGATIVE); PHENCYCLIDINE URINE NEGATIVE (NEGATIVE)
== END 2021-01-07 05:30 | disposition home or self-care (01) ==
LOC: M ED 02:56
DX: S61.312A Laceration without foreign body of right middle finger with damage to nail, initial encounter (principal); S61.214A Laceration without foreign body of right ring finger without damage to nail, initial encounter; W22.09XA Striking against other stationary object, initial encounter; Y92.9 Unspecified place or not applicable; Y93.9 Activity, unspecified; Y99.9 Unspecified external cause status; R41.82 Altered mental status, unspecified; R56.9 Unspecified convulsions; G47.00 Insomnia, unspecified; K58.8 Other irritable bowel syndrome; K21.9 Gastro-esophageal reflux disease without esophagitis

== ENCOUNTER 2021-01-10 07:34 | Emergency (ER) | payer OTHER ==
[~2021-01-10] VITALS: Ht 152.4 cm; Wt 65.9 kg
[~2021-01-10 07:34] MED LIST changes: +SERT-141 PO; +TRAZ-252 PO
[2021-01-10 09:21] LABS: BASO % 0.6 % (0.0-1.0); EOS # 0.2 10^3/uL (0.0-0.5); EOS % 2.2 % (0.0-3.0); HEMATOCRIT 36.5 % (36.0-47.0); HEMOGLOBIN 11.6 g/dl (12.0-15.5); LYMPH # 1.5 10^3/uL (1.5-5.0); LYMPH % 21.3 % (24.0-44.0); MEAN CORPUSCULAR HEMOGLOBIN 25.9 pg (27.0-33.0); MEAN CORPUSCULAR HGB CONC 31.8 g/dl (32.0-36.5); MEAN CORPUSCULAR VOLUME 81.5 fl (80.0-96.0); MONO # 0.4 10^3/uL (0.0-0.8); NEUTROPHILS # 4.9 10^3/uL (1.5-8.5); NEUTROPHILS % 69.6 % (36.0-66.0); PLATELET COUNT, AUTOMATED 234 10^3/uL (150-450); RED BLOOD COUNT 4.48 10^6/uL (4.00-5.40)
--- NOTE | 2021-01-10 09:29 | REP ---
INDICATION: seizure. COMPARISON: Comparison study June 09, 2020. TECHNIQUE: Helical scanning is acquired. 5 mm axial images were reformatted. Coronal MPR images were generated. FINDINGS: Bone window settings demonstrate an intact bony calvarium. There is no evidence of skull fracture or incidental bony calvarial lesion. The visualized paranasal sinuses appear clear. No intraorbital abnormality is seen. On soft tissue window setting images; the lateral, third, and fourth ventricles are normal in size and position. Burris-white differentiation pattern is normal above and below the tentorium. There are is no evidence of intracranial hemorrhage. No mass, edema, infarction, or midline shift is seen. No extra-axial fluid collection is appreciated. IMPRESSION: Negative noncontrast head CT. <Electronically signed by German Gomez > 01/10/21 [id number]
[2021-01-10 09:34] LABS: BLOOD UREA NITROGEN 13 MG/DL (7-18); CALCIUM LEVEL 8.9 MG/DL (8.5-10.1); CARBON DIOXIDE LEVEL 26 MEQ/L (21-32); CHLORIDE LEVEL 109 MEQ/L (98-107); CREATININE FOR GFR 1.01 MG/DL (0.55-1.30); GLOMERULAR FILTRATION RATE > 60.0 (>60); GLUCOSE, FASTING 92 MG/DL (70-100); POTASSIUM SERUM 4.4 MEQ/L (3.5-5.1); SODIUM LEVEL 140 MEQ/L (136-145)
[2021-01-10] MEDS ORDERED: KEPP250T5 PO (10:20)
[2021-01-10 10:45] VITALS: BP 102/55
--- NOTE | 2021-01-12 07:21 | ECGEPIP ---
[facility] - ED Test Date: 2021-01-10 Pat Name: AUGUSTO GIRON Department: Room: - Gender: Female Catering Cook: : 2000 Requested By: GALE Salgado Order Number: [id number] Reading MD: Roxane Reddy Measurements Intervals [place] Rate: 60 P: 1 NM: 140 QRS: 54 QRSD: 78 T: 33 QT: 394 QTc: 394 Interpretive Statements Normal sinus rhythm early repolarization similar 06/09/20 Electronically Signed on 01-12-2021 7:21:48 EDT by Roxane Reddy
== END 2021-01-10 10:49 | disposition home or self-care (01) ==
LOC: M ED 07:34 → EDBD 07:34 → M ED 10:49
DX: R56.9 Unspecified convulsions (principal); H53.8 Other visual disturbances; M54.2 Cervicalgia; R51.9 Headache, unspecified; J02.9 Acute pharyngitis, unspecified; F41.9 Anxiety disorder, unspecified; F32.9 Major depressive disorder, single episode, unspecified; Z91.040 Latex allergy status; Z79.899 Other long term (current) drug therapy